=== PATIENT | male | born 1985 | race Caucasian/White ===

== ENCOUNTER 2016-08-31 20:10 | Emergency (ER) | payer OTHER ==
[2016-09-01] MEDS ORDERED: IBUPROFEN 600 MG TABLET PO ONE (00:53)
[2016-09-01] MEDS ORDERED: SULFAMETHOXAZOLE/TRIMETHOPRIM 800-160 MG TABLET PO ONE (00:53)
[2016-09-01] MEDS ORDERED: HYDROCODONE/ACETAMINOPHEN 5-325 MG 6 TAB/DSPK PO PRN (00:53)
[2016-09-01] MEDS ORDERED: CEPHALEXIN 500 MG CAPSULE PO ONE (00:53)
--- NOTE | 2016-09-01 00:54 | ER Document Report ---
ED General - General Chief Complaint: Skin Problem Stated Complaint: LEFT HAND POSSIBLE INFECTION Notes: Patient is a 31-year-old male who presents with 2 days of progressively worsening swelling and pain to the dorsal aspect of his left index finger. He describes this as a throbbing, constant, aching pain has been getting worse since onset. Nothing improves or worsens his pain. No history of similar symptoms in the past. He denies any constitutional symptoms. He denies any limited range with this digit. No acute injury to this area. He has not seen his primary care doctor regarding today's concerns. TRAVEL OUTSIDE OF THE [place] IN LAST 30 DAYS: No - Related Data Allergies/Adverse Reactions: bupropion HCl [From Wellbutrin] Allergy (Verified 07/30/15 22:13) Past Medical History - General Information source: Patient - Social History Smoking Status: Never Smoker Frequency of alcohol use: None Drug Abuse: None Lives with: Spouse/Significant other Family History: Reviewed & Not Pertinent Patient has suicidal ideation: No Patient has homicidal ideation: No Renal/ Medical History: Denies: Hx Peritoneal Dialysis Psychiatric Medical History: Reports: Hx Depression - Immunizations Immunizations up to date: Yes Hx Diphtheria, Pertussis, Tetanus Vaccination: Yes Physical Exam - Vital signs Vitals: Temp Pulse Resp BP Pulse Ox 97.9 F 68 18 139/77 H 96 08/31/16 20:55 08/31/16 20:55 08/31/16 20:55 08/31/16 20:55 08/31/16 20:55 Interpretation: Normal Notes: PHYSICAL EXAMINATION: GENERAL: Well-appearing, well-nourished and in no acute distress. HEAD: Atraumatic, normocephalic. EYES: sclera anicteric, conjunctiva are normal. ENT: Moist mucous membranes. NECK: Normal range of motion LUNGS: Normal work of breathing HEART: 2+ radial pulses bilaterally EXTREMITIES: No pain along the flexor sheath of the left index finger. Full flexion and extension of the DIP, PIP and DIP. There is no circumferential edema. NEUROLOGICAL: No focal neurological deficits. Moves all extremities spontaneously and on command. PSYCH: Normal mood, normal affect. SKIN: Warm, Dry, normal turgor, there is a small area of fluctuance at the base of the left index finger with minimal surrounding erythema. Course - Re-evaluation Re-evalutation: 09/01/16 00:53 Patient presents with a small abscess at the dorsal base of the left index finger with minimal surrounding cellulitis. No evidence of flexor tenosynovitis. Patient does not have pain over the flexor sheath. His finger is not resting and flexion. He has full flexion extension of the digit. The abscess was incised and drained at the bedside without difficulty. He will be started on Bactrim and Keflex as an outpatient.At this time will discharge with return precautions and follow-up recommendations. Verbal discharge instructions given a the bedside and opportunity for questions given. Medication warnings reviewed. Patient is in agreement with this plan and has verbalized understanding of return precautions and the need for primary care follow-up in the next 24-72 hours. - Vital Signs Vital signs: Temp Pulse Resp BP Pulse Ox 97.3 F 73 16 136/74 H 99 09/01/16 01:44 09/01/16 01:44 09/01/16 01:44 09/01/16 01:44 09/01/16 01:44 Procedures - Incision and Drainage Left Finger Type: Simple Anesthetic type: 1% Lidocaine mL's of anesthetic: 1 Blade size: 11 I&D procedure: Betadine prep applied Incision Method: Incision made by scalpel Amount/type of drainage: 1cc purulent drianage Discharge - Discharge Clinical Impression: Abscess of left index finger Condition: Good Disposition: HOME, SELF-CARE Additional Instructions: You were seen for an abscess that required drainage. Please clean this area with soap and water twice daily and apply a topical antibiotic. Dress the area after each cleaning. Please return if you develop fever, vomiting, the pain at the site worsens, you notice spreading redness from the area, or you have any other symptoms that are concerning to you. Prescriptions: Cephalexin Monohydrate [Keflex 500 mg Capsule] 500 mg PO QID #20 capsule Sulfamethoxazole/Trimethoprim [Bactrim Ds Tablet] 2 tab PO BID 20 Days
[2016-09-01 01:46] VITALS: BP 136/74
== END 2016-09-01 01:44 | disposition home or self-care (01) ==
LOC: ER 20:10
PROC: 0H9GXZZ Drainage of Left Hand Skin, External Approach (ICD-10-PCS; principal; 2016-08-31)
DX: L02.512 Cutaneous abscess of left hand (principal); M79.645 Pain in left finger(s)
CPT/HCPCS: 99283

== ENCOUNTER 2017-10-19 06:38 | Day surgery (SDC) | payer OTHER ==
[2017-10-12 11:04] LABS: HEMATOCRIT 41.3 % (37.9-51.0); HEMOGLOBIN 14.3 g/dL (13.5-17.0); MEAN CORPUSCULAR HEMOGLOBIN 29.9 pg (27.0-33.4); MEAN CORPUSCULAR HGB CONC 34.7 g/dL (32.0-36.0); MEAN CORPUSCULAR VOLUME 86 fl (80-97); PLATELET COUNT 186 10^3/uL (150-450); RED BLOOD COUNT 4.78 10^6/uL (4.35-5.55); RED CELL DISTRIBUTION WIDTH 13.2 % (11.5-14.0); WHITE BLOOD COUNT 6.4 10^3/uL (4.0-10.5)
[2017-10-12 11:09] LABS: APPEARANCE,URINE CLEAR; BILIRUBIN,URINE NEGATIVE (NEGATIVE); COLOR,URINE STRAW; GLUCOSE, URINE NEGATIVE (NEGATIVE); KETONES,URINE NEGATIVE (NEGATIVE); LEUKOCYTE ESTERASE,URINE NEGATIVE (NEGATIVE); NITRITE,URINE NEGATIVE (NEGATIVE); PROTEIN,URINE NEGATIVE (NEGATIVE); URINE SPECIFIC GRAVITY 1.003; UROBILINOGEN,URINE NEGATIVE mg/dL (<2.0)
[2017-10-12 11:23] LABS: ANION GAP 14 (5-19); BLOOD UREA NITROGEN 10 mg/dL (7-20); CALCIUM 9.3 mg/dL (8.4-10.2); CARBON DIOXIDE 28 mmol/L (22-30); CHLORIDE 104 mmol/L (98-107); GLUCOSE 83 mg/dL (75-110); POTASSIUM 4.1 mmol/L (3.6-5.0); SODIUM 145.9 mmol/L (137-145)
[~2017-10-19 06:38] MED LIST: BUPIVACAINE HCL 0.5 % INJ/PF 30 ML SDV ONE; CEFAZOLIN SODIUM 2 GM in NORMAL SALINE 100 ML IV PRN; LACTATED RINGERS 1000 ML IV PRN
[2017-10-19] MEDS ORDERED: FENTANYL CITRATE INJ/PF 100 MCG/2 ML AMPUL ONE (06:41)
[2017-10-19] MEDS ORDERED: LIDOCAINE 2% INJ-PF (20 MG/ML) 10 ML AMPUL ONE (06:41)
[2017-10-19] MEDS ORDERED: ACETAMINOPHEN 1,000 MG/100 ML RTUPB IV ONE (06:42)
[2017-10-19] MEDS ORDERED: ONDANSETRON HCL INJ/PF 4 MG/2 ML SDV ONE (06:42)
[2017-10-19] MEDS ORDERED: PROPOFOL INJ 200 MG/20 ML VIAL IV ONE (06:42)
[2017-10-19] MEDS ORDERED: DEXAMETHASONE SOD PHOSPHATE INJ 4 MG/1 ML VIAL ONE (06:42)
[2017-10-19] MEDS ORDERED: MIDAZOLAM 2 MG/2 ML INJ ONE (06:42)
[2017-10-19] MEDS ORDERED: BUPIVACAINE HCL 0.5 % INJ/PF 30 ML SDV ONE (08:51)
[2017-10-19] MEDS ORDERED: MORPHINE SULFATE 10 MG/ML INJ IV PRN (09:50)
[2017-10-19] MEDS ORDERED: PROMETHAZINE HCL INJ 25 MG/1 ML VIAL IV PRN ×2 (09:50)
[2017-10-19] MEDS ORDERED: DIPHENHYDRAMINE HCL 50 MG/ML VIAL IV PRN (09:50)
[2017-10-19] MEDS ORDERED: MEPERIDINE HCL/PF INJ 25 MG/1 ML DISP.SYRIN IV PRN (09:50)
[2017-10-19] MEDS ORDERED: FENTANYL CITRATE INJ/PF 100 MCG/2 ML AMPUL IV PRN ×3 (09:50)
--- NOTE | 2017-10-19 11:33 | Discharge Summary ---
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 Pratik Lawrence @ [facility] for Surgery to be seen in 10-14 days or as scheduled [place]: Lodge: [place]: Ice and elevate Keep splint clean/dry/intact. If your fingers become numb please unwrap the Roni wrap but leave the splint in place, if the sensation does not return within 30 minutes please return to the emergency department. May begin finger range of motion attempting to make full fist. Please use ibuprofen (Motrin or Advil) 600-800 mg every 8 hours as needed for pain or fever DO NOT TAKE w/ TORADOL may use once TORADOL complete. You may also use acetaminophen (Tylenol) 1000 mg every 4-6 hours as needed for pain or fever. Please be aware that many medications contain acetaminophen, do not exceed a total of 1000 mg of acetaminophen every 6 hours. If ibuprofen and acetaminophen are not sufficient for your pain you may take the Percocet/[place]. Please be aware that the Percocet/[place] does contain Tylenol. Stool softener of choice when on pain medication. Prescriptions: Ketorolac Tromethamine [Toradol 10 mg Tablet] 10 mg PO Q8HP PRN #10 tablet PRN Reason: Oxycodone HCl/Acetaminophen [Percocet 7.5-325 mg Tablet] 1 - 2 tab PO ASDIR PRN #35 tab PRN Reason:
--- NOTE | 2017-10-19 11:41 | Operative Report ---
Operative Report PREOPERATIVE DIAGNOSIS: Kienbock's disease left wrist POSTOPERATIVE DIAGNOSIS: Same OPERATION: 1. Left Scaphocapitate Arthrodesis w/ Lunate Excision. 2. PIN Neurectomy SURGEON: HERNAN WOMACK ANESTHESIA: GA COMPLICATIONS: None ESTIMATED BLOOD LOSS: Minimal PROCEDURE: Indication for above procedure: 32-year-old male who has a history of Kienbock's underwent previous radial shortening but failed to see improvement of his symptoms and continued to have discomfort we discussed treatment options including continued observation versus operative intervention after discussing alternatives to treatment including arthrodesis. Joint decision was made to proceed with operative treatment. Risks and benefits were explained patient verbalized understanding consented for the procedure. Procedure In Detail: Patient was seen and evaluated in the preoperative holding area. The upper extremity was initialized and marked. Patient received 2g of Ancef IV for bacterial prophylaxis. Patient was taken back to the operative room where transferred to the operative table and placed under general anesthesia. Once they were adequately anesthetized a nonsterile tourniquet was placed on the upper extremity. A surgical team debriefing was performed ensuring all instrumentation was available, the surgical procedure was discussed with possible concerns reviewed. The upper extremity was prepped with chlorhexidine and alcohol and draped in a sterile fashion. A timeout was done identifying correct patient, procedure and extremity everyone in attendance agree with this and verbalized no concerns. The extremity was exsanguinated the tourniquet was inflated to 250 mmHg. Longitudinal skin incision was made just ulnar to Berenice's tubercle. Blunt dissection was performed branches of the superficial radial nerve were identified. Small peripheral veins were coagulated with bipolar cautery. EPL was identified and released distally. I then elevated the second and fourth dorsal compartments exposing the DIC and DRC. The posterior interosseous nerve was identified one centimeter resected. A radial based ligament sparing capsulotomy was then made exposing the carpus. There was evidence of significant synovitis thus a synovectomy was performed. Inspection of the lunate fossa demonstrates no evidence of degenerative changes. The radial-scaphoid articulation demonstrate no evidence of degenerative changes thus decision was made to proceed with scaphoid capitate arthrodesis. The lunate was initially isolated and removed in its entirety along with any remaining small bone fragments. 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 I then exposed the interval between the scaphoid and capitate. With the use of rongeurs and a osteotome 80% of the articulation between the scaphoid and capitate was debrided down to good cancellus bone to allow for optimal arthrodesis union. A 0.062 K wire was placed along the proximal scaphoid to reduce the radius scaphoid angle to 40. A percutaneous K wire on oscillate was placed across the scaphoid capitate articulation maintaining reduction. C-arm fluoroscopy was obtained to confirm adequate reduction. With the measuring tool the BME staple measurement was determined. 0.045 K wires were placed into the capitate and scaphoid C-arm fluoroscopy was obtained confirming adequate placement of my staple. A 15 x 12 mm staple was placed a small bone trough was placed between the 2 legs of the staple and adequate compression was established. I then placed a second 15 x 12 mm staple just distal to the previous staple to provide further compression. Once again K wires were placed confirming adequate location of the staple. I then proceeded with harvesting autograft. Berenice's tubercle was removed and a small cortical window was placed dorsally and cancellus bone was retrieved. The wound was copiously irrigated with normal saline. The cancellus autograft was packed into any remaining space between the scaphoid and capitate until adequately filled. Final C-arm fluoroscopy was obtained confirming adequate arthrodesis and alignment of the capitate to the scaphoid and the radial scaphoid angle. The capsule was closed with interrupted 3-0 Ethibond suture. A portion of the extensor retinaculum was placed volar to the EPL tendon at the area of the bone graft harvest site to avoid tendon irritation. The tourniquet was then deflated and compression was held for 2 minutes. Any peripheral bleeding was coagulated bipolar cautery into the wound was dry. Subcutaneous tissues were closed with 3-0 Monocryl suture. Skin was closed with running subcuticular 4-0 Monocryl reinforced with Dermabond and Steri-Strips. 30 cc of 0.5% Marcaine with epinephrine was injected for postoperative pain control. Patient was placed in a dorsal plaster splint in neutral position. Sponge counts, instrument counts, needle counts counts were correct. Patient was then awoken from anesthesia. Transferred from the operating room table to the operating room stretcher. There was no intraoperative complications patient tolerated procedure well stable to PACU. Postoperative plan: Patient will follow-up the office in 2 weeks at which point we will obtain radiographs and patient will be transitioned to a short arm cast until arthrodesis union.
[2017-10-19] MEDS ORDERED: OXYCODONE-ACETAMINOPHEN 5-325 MG TABLET PO PRN (11:47)
[2017-10-19] MEDS ORDERED: HYDROMORPHONE HCL INJ/PF 2 MG/ML AMPULE IV PRN (11:47)
--- NOTE | 2017-10-19 12:10 | RADIOLOGY REPORT (SQ) ---
EXAM DESCRIPTION: NO CHG FLUORO; WRIST LEFT 2 VIEWS COMPLETED DATE/TIME: 10/19/2017 11:35 am REASON FOR STUDY: LT WRIST SCAPHOCAPITATE ARTHRODESIS WITH LUNATE EXCISION M25.532 PAIN IN LEFT WRI ST COMPARISON: None. FLUOROSCOPY TIME: 1 minutes 2 seconds. 5 images saved to PACS. TECHNIQUE: Intra-operative images acquired during surgical procedure to evaluate progress. NUMBER OF IMAGES: 5 images. LIMITATIONS: None. FINDINGS: Images of the wrist acquired during surgical procedure. IMPRESSION: IMAGE(S) OBTAINED DURING PROCEDURE. COMMENT: Quality ID 145: Final reports for procedures using fluoroscopy that document radiation exp osure indices, or exposure time and number of fluorographic images (if radiation exposure indices are not available) Please consult full operative report of the attending physician for description of the procedure. TECHNICAL DOCUMENTATION: JOB ID: [id number] [employer] All Rights Reserved Reading location - IP/workstation name: [email or web address]
--- NOTE | 2017-10-19 12:10 | RADIOLOGY REPORT (SQ) ---
EXAM DESCRIPTION: NO CHG FLUORO; WRIST LEFT 2 VIEWS COMPLETED DATE/TIME: 10/19/2017 11:35 am REASON FOR STUDY: LT WRIST SCAPHOCAPITATE ARTHRODESIS WITH LUNATE EXCISION M25.532 PAIN IN LEFT WRI ST COMPARISON: None. FLUOROSCOPY TIME: 1 minutes 2 seconds. 5 images saved to PACS. TECHNIQUE: Intra-operative images acquired during surgical procedure to evaluate progress. NUMBER OF IMAGES: 5 images. LIMITATIONS: None. FINDINGS: Images of the wrist acquired during surgical procedure. IMPRESSION: IMAGE(S) OBTAINED DURING PROCEDURE. COMMENT: Quality ID 145: Final reports for procedures using fluoroscopy that document radiation exp osure indices, or exposure time and number of fluorographic images (if radiation exposure indices are not available) Please consult full operative report of the attending physician for description of the procedure. TECHNICAL DOCUMENTATION: JOB ID: [id number] [email or web address] All Rights Reserved Reading location - IP/workstation name: [email or web address]
[2017-10-19 15:25] VITALS: BP 140/91
== END 2017-10-19 15:20 | disposition home or self-care (01) ==
LOC: OROUT 06:38
PROVIDERS: ATTEND Orthopaedic Surgery
DX: M65.832 Other synovitis and tenosynovitis, left forearm (principal); M92.212 Osteochondrosis (juvenile) of carpal lunate [Kienbock], left hand; M25.532 Pain in left wrist; Z88.8 Allergy status to other drugs, medicaments and biological substances; Z79.1 Long term (current) use of non-steroidal anti-inflammatories (NSAID)
CPT/HCPCS: 64772; 25825; 36415; 85027; 80048; 81001; 73100; C1769 ×2; J2250; J3490 ×2; J0690; J1100; J3010; J2405; J2704; J1644; J0131; 01830

== ENCOUNTER 2019-03-30 17:36 | Emergency (ER) | payer OTHER ==
[2019-03-30] MEDS ORDERED: AMOXICILLIN TRIHYD 250 MG CAPSULE PO ONE (19:08)
[2019-03-30] MEDS ORDERED: AMOXICILLIN TR/POT CLAVULANATE 500-125 MG TAB PO ONE (19:08)
[2019-03-30] MEDS ORDERED: DIPH/PERTUSS(ACELL)/TETANUS VAC/PF 0.5 ML SYR (>=10YO) IM ONE (19:09)
--- NOTE | 2019-03-30 19:12 | ER Document Report ---
HPI - HPI Time Seen by Provider: 03/30/19 19:01 Pain Level: 3 Context: Patient is a 33-year-old male who presents to the emergency department with a chief complaint of dog bite. Patient reports around 1600 this afternoon he was at a friend's house who was dog sitting when he was bit by the Rottweiler mix. Patient reports this was unprovoked. The solutions market consultant reports the shots are up-to-date including the rabies vaccine. Patient reports his tetanus shot is not up-to-da te. Patient reports 2 puncture wounds to the top of his right hand and 1 to the inside palm. Patient reports significant swelling and pain that is worse with movement. Patient denies numbness or tingling to his fingers. Patient reports he feels like his hand is broken. Patient states he is not taking any pain medication prior to arrival. - REPRODUCTIVE Reproductive: DENIES: : Past Medical History - General Information source: Patient - Social History Smoking Status: Never Smoker Chew tobacco use (# tins/day): No Frequency of alcohol use: None Lives with: Alone Family History: Reviewed & Not Pertinent Patient has suicidal ideation: No Patient has homicidal ideation: No - Past Medical History Cardiac Medical History: Reports: None Denies: Hx Coronary Artery Disease, Hx Heart Attack, Hx Hypertension Pulmonary Medical History: Reports: None Denies: Hx Asthma, Hx Bronchitis, Hx COPD, Hx Pneumonia EENT Medical History: Reports: None Neurological Medical History: Reports: None. Denies: Hx Cerebrovascular Accident, Hx Seizures Endocrine Medical History: Reports: None Renal/ Medical History: Reports: None. Denies: Hx Peritoneal Dialysis Malignancy Medical History: Reports None GI Medical History: Reports: None Musculoskeletal Medical History: Reports None, Denies Hx Arthritis Skin Medical History: Reports None Psychiatric Medical History: Reports: Hx Depression - Immunizations Immunizations up to date: Yes Hx Diphtheria, Pertussis, Tetanus Vaccination: Yes Vertical Provider Document - CONSTITUTIONAL Agree With Documented VS: Yes Exam Limitations: No Limitations General Appearance: No Apparent Distress - INFECTION CONTROL TRAVEL OUTSIDE OF THE [place] IN LAST 30 DAYS: No - HEENT HEENT: Atraumatic, Normal ENT Exam, Normocephalic, PERRLA - NECK Neck: Normal Inspection - RESPIRATORY Respiratory: Breath Sounds Normal, No Respiratory Distress - CARDIOVASCULAR Cardiovascular: Regular Rate, Regular Rhythm - GI/ABDOMEN Gastrointestinal: Abdomen Soft, Abdomen Non-Tender, Normal Bowel Sounds - MUSCULOSKELETAL/EXTREMETIES Musculoskeletal/Extremeties: FROM Notes: Patient has 2 puncture wounds noted to the dorsal aspect of the right hand and one puncture wound noted to the palmar aspect of the right hand. Patient does have edema noted around the site. No active bleeding. Patient has less than 2-second cap refill in all digits of the right hand. Patient unable to make a fist and squeeze my fingers as he does have significant swelling. - NEURO Level of Consciousness: Awake, Alert, Appropriate - DERM Integumentary: Warm, Dry, No Rash Course - Re-evaluation Re-evalutation: 03/30/19 19:12 We will obtain an x-ray of the right hand to rule out foreign body and fracture. I did offer the patient pain medication to include ibuprofen but the patient reports he is okay at this time. Will provide wound care, update tetanus. 03/30/19 19:57 Did discuss results of the x-ray with the patient. Patient instructed to keep the wound clean and dry. Antibiotic prophylaxis given today as well as tightness. Patient instructed to keep the extremity elevated. - Vital Signs Vital signs: Temp Pulse Resp BP Pulse Ox 97.9 F 81 16 152/87 H 99 03/30/19 18:01 03/30/19 18:01 03/30/19 18:01 03/30/19 18:01 03/30/19 18:01 - Diagnostic Test Radiology reviewed: Reports reviewed Radiology results interpreted by me: 03/30/19 19:57 Hand X-Ray 03/30/19 19:09 IMPRESSION: NEGATIVE STUDY OF THE RIGHT HAND. NO RADIOGRAPHIC EVIDENCE OF ACUTE INJURY. Discharge - Discharge Clinical Impression: Dog bite Qualifiers: Encounter type: initial encounter Qualified Code(s): W54.0XXA - Bitten by dog, initial encounter Dog bite of right hand Qualifiers: Encounter type: initial encounter Qualified Code(s): S61.451A - Open bite of right hand, initial encounter Condition: Stable Disposition: HOME, SELF-CARE Additional Instructions: *Today you are seen in the emergency department for a dog bite to the right hand. We did obtain an x-ray which was negative for an acute fracture. He will continue to have swelling as you did have trauma to this hand. Please ice, elevate the right hand to aid with swelling and discomfort. Please continue to move your hands frequently and attempt to make a fist. Use Tylenol and ibuprofen as needed for pain. We have given your first dose of oral antibiotics and you will be placed on antibiotics for the next 10 days. This is to prevent infection as an animal bite are extremely dirty. Please keep the wounds clean dry. Puncture wounds from a dog bite are not closed due to the risk for infection. Animal Bites Animal bites are often heavily contaminated with bacteria. In spite of thorough cleansing and proper treatment, these wounds frequently become infected. Bite wounds of the hands are especially prone to complications. Bites are dressed, if possible. Large wounds may require suturing after internal cleansing. Because of infection risk, some large wounds must remain unstitched. Your doctor is trained to advise you on the best treatment for your bite. Call the doctor at once if the wound becomes red, swollen, warm, increasingly painful, or if it begins to drain. Danger signs also include red streaks up the involved extremity, swollen glands in the groin or under the arm, or fever and chills. The risk of rabies from domestic animals is very low. Bats, sick animals, and wild animals may expose you to rabies. The physician, or the health department, will inform you if you will need to receive the rabies vaccine. Prescriptions: Amox Tr/Potassium Clavulanate [Augmentin 875-125 Tablet] 1 tab PO BID 10 Days tablet Forms: Return to Work Referrals: YVES CASTILLO MD [Primary Care Provider] - Follow up as needed
--- NOTE | 2019-03-30 19:33 | RADIOLOGY REPORT (SQ) ---
EXAM DESCRIPTION: HAND RIGHT 3 VIEWS COMPLETED DATE/TIME: 03/30/2019 7:20 pm REASON FOR STUDY: dog bite right hand COMPARISON: None. EXAM PARAMETERS: NUMBER OF VIEWS: Three views. TECHNIQUE: AP, lateral and oblique radiographic images acquired of the right hand. LIMITATIONS: None. FINDINGS: MINERALIZATION: Normal. BONES: No acute fracture or dislocation. No worrisome bone lesions. JOINTS: No effusions. SOFT TISSUES: Soft tissue swelling. No foreign body. OTHER: No other significant finding. IMPRESSION: NEGATIVE STUDY OF THE RIGHT HAND. NO RADIOGRAPHIC EVIDENCE OF ACUTE INJURY. TECHNICAL DOCUMENTATION: JOB ID: [id number] [employer]- All Rights Reserved Reading location - IP/workstation name: [email or web address]
[2019-03-30 20:37] VITALS: BP 134/77
== END 2019-03-30 20:37 | disposition home or self-care (01) ==
LOC: ER 17:36
DX: S61.451A Open bite of right hand, initial encounter (principal); W54.0XXA Bitten by dog, initial encounter; Y92.009 Unspecified place in unspecified non-institutional (private) residence as the place of occurrence of the external cause; Z23 Encounter for immunization
CPT/HCPCS: 99283; 90471; 73130; 90715; J3490